=== PATIENT | male | born 2000 | race Hispanic/Latino ===

== ENCOUNTER → 2020-10-30 | Outpatient (CLI) | payer SELFPAY | LOC: M LABSMTC 11:27 | PROVIDERS: ATTEND Pediatrics | DX: Z20.828 Contact with and (suspected) exposure to other viral communicable diseases (principal) ==

== ENCOUNTER 2023-10-09 12:35 | Emergency (ER) | payer OTHER, SELFPAY ==
[~2023-10-09] VITALS: Ht 177.8 cm; Wt 79.5 kg
[2023-10-09 15:53] LABS: BASO % 0.4 % (0.0-1.0); EOS # 0.2 10^3/uL (0.0-0.5); HEMATOCRIT 44.2 % (42.0-52.0); HEMOGLOBIN 14.2 g/dl (13.5-17.5); LYMPH % 47.4 % (24.0-44.0); MEAN CORPUSCULAR HEMOGLOBIN 25.6 pg (27.0-33.0); MEAN CORPUSCULAR HGB CONC 32.1 g/dl (32.0-36.5); MEAN CORPUSCULAR VOLUME 79.8 fl (80.0-96.0); MONO # 0.7 10^3/uL (0.0-0.8); NEUTROPHILS # 3.5 10^3/uL (1.5-8.5); PLATELET COUNT, AUTOMATED 344 10^3/uL (150-450); RED BLOOD COUNT 5.54 10^6/uL (4.30-6.10); WHITE BLOOD COUNT 8.4 10^3/uL (4.0-10.0)
[2023-10-09 16:16] LABS: CK-MB VALUE MASS < 1.0 NG/ML (<3.6)
[2023-10-09 16:17] LABS: BLOOD UREA NITROGEN 12 MG/DL (9-23); CALCIUM LEVEL 8.9 MG/DL (8.5-10.1); CARBON DIOXIDE LEVEL 28 MMOL/L (20-31); CHLORIDE LEVEL 105 MMOL/L (98-107); CPK CREATINE PHOSPHOKINASE 283 U/L (46-171); CREATININE FOR GFR 0.76 MG/DL (0.70-1.30); GLOMERULAR FILTRATION RATE > 60.0 (>60); GLUCOSE, FASTING 87 MG/DL (60-100); MB/CK RELATIVE INDEX 0.35 (< OR =4); POTASSIUM SERUM 4.3 MMOL/L (3.5-5.1); SODIUM LEVEL 140 MMOL/L (136-145)
[2023-10-09] MEDS ORDERED: IBUP-1022 PO (17:04)
[2023-10-09 17:23] VITALS: BP 122/58; TEMP 98.4; O2SAT 100
== END 2023-10-09 17:25 | disposition home or self-care (01) ==
LOC: M ED 12:35 → EDBD 12:35 → M ED 17:25
DX: M94.0 Chondrocostal junction syndrome [Tietze] (principal); R74.8 Abnormal levels of other serum enzymes

== ENCOUNTER 2024-02-15 12:18 | Day surgery (SDC) | payer OTHER ==
[~2024-02-15] VITALS: Ht 177.8 cm; Wt 84.9 kg
[~2024-02-15 12:18] MED LIST: IBUP-1022 PO
[2024-02-15 13:09] LABS: BASO % 0.2 % (0.0-1.0); EOS % 0.2 % (0.0-3.0); HEMATOCRIT 43.4 % (42.0-52.0); HEMOGLOBIN 14.1 g/dl (13.5-17.5); LYMPH # 3.2 10^3/uL (1.5-5.0); MEAN CORPUSCULAR HEMOGLOBIN 26.5 pg (27.0-33.0); MEAN CORPUSCULAR HGB CONC 32.5 g/dl (32.0-36.5); MEAN CORPUSCULAR VOLUME 81.4 fl (80.0-96.0); MONO % 6.3 % (2.0-8.0); NEUTROPHILS # 12.3 10^3/uL (1.5-8.5); NEUTROPHILS % 73.9 % (36.0-66.0); PLATELET COUNT, AUTOMATED 337 10^3/uL (150-450); RED BLOOD COUNT 5.33 10^6/uL (4.30-6.10); WHITE BLOOD COUNT 16.6 10^3/uL (4.0-10.0)
[2024-02-15 13:33] LABS: ALBUMIN 3.9 G/DL (3.2-5.2); BILIRUBIN,DIRECT 0.3 MG/DL (<0.4); TOTAL PROTEIN 7.4 G/DL (5.7-8.2)
[2024-02-15] MEDS: ONDANSETRON 4MG 2ML VIAL IV ONE (13:52)
[2024-02-15] MEDS: MORPHINE 4 MG/ML 1ML VIAL IV ONE (13:52)
[2024-02-15 14:58] LABS: INR 1.12; PROTHROMBIN TIME 14.1 SECONDS (12.5-14.5)
[2024-02-15] MEDS ORDERED: VITA500045 PO (16:44)
[2024-02-15] MEDS ORDERED: HOME MED LIST COMPLETE! XX SCH (16:45)
[2024-02-15] MEDS ORDERED: ONDANSETRON 4MG 2ML VIAL IV PRN ×2 (19:55→20:55)
[2024-02-15] MEDS ORDERED: fentaNYL 100 MCG/2 ML INJECTION IV PRN (19:55)
[2024-02-15] MEDS: LR 1,000 ML IV SCH (19:55)
[2024-02-15] MEDS ORDERED: oxyCODONE 5MG TAB PO PRN (19:55)
[2024-02-15] MEDS ORDERED: HYDROMORPHONE HCL 0.5 MG/ 0.5 ML SYRINGE IV PRN (19:55)
[2024-02-15] MEDS: ZOSYN 3.375GM VIAL As Ordered ONE (20:00)
[2024-02-15] MEDS: LIDOCAINE 1% SDV 30ML VIAL As Ordered ONE (20:17)
[2024-02-15] MEDS ORDERED: ACETAMINOPHEN TAB 650MG DOSE (2X325MG) PO PRN (20:55)
[2024-02-15] MEDS ORDERED: MORPHINE 4 MG/ML 1ML VIAL IV PRN (20:55)
[2024-02-15 22:00] VITALS: BP 115/56; TEMP 97.9; O2SAT 97
[2024-02-15] MEDS: KETOROLAC 30 MG/ML 1ML VIAL IV PRN (22:12)
[2024-02-15 22:30] VITALS: BP 111/59; TEMP 97.8; O2SAT 96
[2024-02-15 23:00] VITALS: BP 109/52; TEMP 97.6; O2SAT 97
[2024-02-16] VITALS: BP 110/56; TEMP 97.5; O2SAT 96
[2024-02-16 01:00] VITALS: BP 102/50; TEMP 97.4; O2SAT 97
[2024-02-16 02:00] VITALS: BP 101/54; TEMP 97.2; O2SAT 97
[2024-02-16] MEDS: PIPERACILLIN/TAZOBACTAM SOD 3.375 GM in D5W MINI-BAG PLUS 50 ML IV SCH (02:16)
[2024-02-16] MEDS: NORCO, ANEXSIA 5/325MG TABLET (HYDROcodone/ACETAMINOPHEN) PO PRN (02:57)
[2024-02-16 03:00] VITALS: BP 111/66; TEMP 97.5; O2SAT 97
[2024-02-16 04:00] VITALS: BP 117/59; TEMP 97.7; O2SAT 97
[2024-02-16] MEDS: LR 1,000 ML IV SCH (04:55)
[2024-02-16 08:00] VITALS: BP 140/65; TEMP 97.7; O2SAT 98
[2024-02-16 08:00] LABS: BLOOD UREA NITROGEN 10 MG/DL (9-23); CARBON DIOXIDE LEVEL 28 MMOL/L (20-31); CHLORIDE LEVEL 104 MMOL/L (98-107); CREATININE FOR GFR 0.82 MG/DL (0.70-1.30); GLOMERULAR FILTRATION RATE > 60.0 (>60); GLUCOSE, FASTING 116 MG/DL (60-100); POTASSIUM SERUM 4.3 MMOL/L (3.5-5.1); SODIUM LEVEL 138 MMOL/L (136-145)
[2024-02-16 08:17] LABS: BASO % 0.1 % (0.0-1.0); HEMATOCRIT 40.9 % (42.0-52.0); HEMOGLOBIN 13.2 g/dl (13.5-17.5); LYMPH % 14.2 % (24.0-44.0); MEAN CORPUSCULAR HEMOGLOBIN 26.2 pg (27.0-33.0); MEAN CORPUSCULAR HGB CONC 32.3 g/dl (32.0-36.5); MEAN CORPUSCULAR VOLUME 81.3 fl (80.0-96.0); MONO % 4.7 % (2.0-8.0); NEUTROPHILS % 80.8 % (36.0-66.0); PLATELET COUNT, AUTOMATED 326 10^3/uL (150-450); RED BLOOD COUNT 5.03 10^6/uL (4.30-6.10); WHITE BLOOD COUNT 10.1 10^3/uL (4.0-10.0)
[2024-02-16 08:18] LABS: LYMPH # 1.4 10^3/uL (1.5-5.0); MONO # 0.5 10^3/uL (0.0-0.8); NEUTROPHILS # 8.2 10^3/uL (1.5-8.5)
[2024-02-16] MEDS ORDERED: AUGM500T34 PO (10:31)
[2024-02-16] MEDS ORDERED: HYDR-3715 PO (10:31)
[2024-02-17] MEDS ORDERED: dexmedeTOMIDine (4MCG/ML)200MCG/50ML BTL (PRECEDEX) As Ordered ONE (20:44)
[2024-02-17] MEDS ORDERED: ROCURONIUM BROMIDE 50MG/5ML VIAL As Ordered ONE (20:44)
[2024-02-17] MEDS ORDERED: LIDOCAINE 2% 100MG/5ML SDV (FOR ANES.) As Ordered ONE (20:44)
[2024-02-17] MEDS ORDERED: MIDAZOLAM INJ 2MG/2ML VIAL As Ordered ONE (20:44)
[2024-02-17] MEDS ORDERED: METOCLOPRAMIDE INJ 10MG/2ML VIAL As Ordered ONE (20:44)
[2024-02-17] MEDS ORDERED: SUGAMMADEX SODIUM 500 MG/5 ML VIAL (BRIDION) As Ordered ONE (20:44)
[2024-02-17] MEDS ORDERED: ONDANSETRON 4MG 2ML VIAL As Ordered ONE (20:44)
[2024-02-17] MEDS ORDERED: propofoL 200 MG/20 ML VIAL As Ordered ONE (20:44)
[2024-02-17] MEDS ORDERED: fentaNYL 100 MCG/2 ML INJECTION As Ordered ONE (20:44)
[2024-02-17] MEDS ORDERED: ACETAMINOPHEN 1000MG 100ML IV BAG As Ordered ONE (20:44)
== END 2024-02-16 11:28 | disposition home or self-care (01) ==
LOC: M ED 13:59 → M SDC 20:51 → M PED 21:55 → M SDC 02-16 11:28
PROVIDERS: ATTEND Surgery
DX: K35.80 Unspecified acute appendicitis (principal)
CPT/HCPCS: 36415; 44970; 74176; 80047; 80048; 80076; 83690; 85025; 85610; 88304; 96365; 96366; 96375; 99284; J0131; J0665; J1100; J1885; J2250; J2405; J2543; J2765; J3010

== ENCOUNTER → 2024-04-04 | Outpatient (CLI) | payer OTHER ==
[~2024-04-04] MED LIST changes: +AUGM500T34 PO; +HYDR-3715 PO; +VITA500045 PO
== END ==
LOC: M SOG 07:57
PROVIDERS: ATTEND Orthopaedic Surgery
DX: M25.561 Pain in right knee (principal); M25.562 Pain in left knee